=== PATIENT | female | born 1990 | race Caucasian/White ===

== ENCOUNTER 2016-09-29 20:05 | Emergency (ER) | payer OTHER ==
[~2016-09-29] VITALS: Ht 160 cm; Wt 51.0 kg
[2016-09-29 20:29] VITALS: Ht 160 cm; Wt 51.0 kg
[2016-09-29] MEDS ORDERED: SODI126M NASAL (22:10)
[2016-09-29] MEDS ORDERED: ACET500C5 PO (22:10)
--- NOTE | 2016-09-29 22:20 | ERD ---
ER Documentation Chief Complaint Date/Time DATE: 09/29/16 TIME: 22:11 Chief Complaint cough, headache, ear pain (right) 2 days HPI 26-year-old female who is approximately 16 weeks is complaining of cough and runny nose 3 days. Cough is nonproductive. Patient also complaining of headache and bilateral ear pain. Her T-max at home was 37.9C. Denies shortness of breath. Denies chest pain. Denies pelvic pain or vaginal bleeding. ROS All systems reviewed and are negative except as per history of present illness. Medications Home Meds Active Scripts Acetaminophen* (Tylophen*) 500 Mg Capsule, 1 CAP PO Q6H Y for PAIN AND OR ELEVATED TEMP, #20 CAP Prov:PRAFUL RIZVI. 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 PRODUCTION MAINTENANCE MECHANIC 09/29/16 PMhx/Soc Medical and Surgical Hx: pt denies Medical Hx, pt denies Surgical Hx History of Surgery: No Hx Neurological Disorder: No Hx Respiratory Disorders: No Hx Cardiac Disorders: No Hx Psychiatric Problems: No Hx Miscellaneous Medical Probl: No Hx Alcohol Use: No Hx Substance Use: No Hx Tobacco Use: No Smoking Status: Former smoker Physical Exam Vitals Vital Signs Date Time Temp Pulse Resp B/P Pulse Ox O2 Delivery O2 Flow Rate FiO2 09/29/16 20:29 98.5 85 16 109/73 98 Physical Exam General impression: Well-developed, well-nourished. Alert, oriented, in no acute distress Head: Normocephalic, atraumatic. Eyes: PERRL, EOM normal. Conjunctiva not injected. ENT: External canals clear. TM's pearly donald. Nasal mucosa erythematous and swollen. Oral mucosa and oropharynx are normal. Neck: Supple, nontender. No lymphadenopathy. No nuchal rigidity. Respiration: Normal respiratory effort. Lungs clear to auscultate bilaterally. No wheezes, rales or rhonchi. Cardiovascular: Regular rate and rhythm. No murmurs or extra heart sounds. Abdomen: Abdomen normal to inspection. Nontender. No masses or organomegaly. Bowel sounds normal. Back: Normal to inspection. No midline spine tenderness. No CVA tenderness. Extremities: Extremities normal to inspection, nontender. ROM normal. Neuro: Mental status normal, speech normal. PANTRY WORKER grossly intact. Skin: Normal turgor. No rash or lesions. Psych: Normal mood and affect. Procedures/MDM Patient is afebrile, in no respiratory distress. Lungs are clear to auscultate. I doubt that patient has pneumonia or bronchitis. Likely patient's symptoms are result of viral upper respiratory infection. Her ear pain likely secondary from nasal congestion. Patient is , I will not give her any cough medications at this time. She did not have any complaint pelvic pain or vaginal bleeding. Low suspicion for threatened . Patient appears well , stable for discharge and outpatient management. Medical decision making shared with patient and family. Education provided to patient and family. Patient and family expressed understanding of the plan. Medications on discharge: Saline nasal spray, Tylenol. Follow-up: Primary care provider in 2-3 days or return to ED if worse. Departure Diagnosis: Primary Impression: URI (upper respiratory infection) URI type: acute nasopharyngitis (common cold) Qualified Code: J00 - Acute nasopharyngitis Condition: Good Patient Instructions: Adult Self-Care for Colds Referrals: [facility] YOU HAVE RECEIVED A MEDICAL SCREENING EXAM AND THE RESULTS INDICATE THAT YOU DO NOT HAVE A CONDITION THAT REQUIRES URGENT TREATMENT IN THE EMERGENCY DEPARTMENT. FURTHER EVALUATION AND TREATMENT OF YOUR CONDITION CAN WAIT UNTIL YOU ARE SEEN IN YOUR DOCTORS OFFICE WITHIN THE NEXT 1-2 DAYS. IT IS YOUR RESPONSIBILITY TO MAKE AN APPOINTMENT FOR FOLOW-UP CARE. IF YOU HAVE A PRIMARY DOCTOR --you should call your primary doctor and schedule an appointment IF YOU DO NOT HAVE A PRIMARY DOCTOR YOU CAN CALL OUR PHYSICIAN REFERRAL HOTLINE AT IF YOU CAN NOT AFFORD TO SEE A PHYSICIAN YOU CAN CHOSE FROM THE FOLLOWING [facility] [place] [address] [facility] [address] [facility] [facility] [address] [facility] [address] [facility] [address] [facility] [facility]. [address] Additional Instructions: Call your primary care doctor TOMORROW for an appointment during the next 2-3 days.See the doctor sooner or return here if your condition worsens before your appointment time. PRAFUL RIZVI. NAV Sep 29, 2016 22:20
[2016-09-29 22:25] VITALS: BP 102/58; PULSE 69; TEMP 98.2
== END 2016-09-29 22:26 | disposition home or self-care (01) ==
LOC: FTE 20:05
DX: O99.512 Diseases of the respiratory system complicating pregnancy, second trimester (principal); J00 Acute nasopharyngitis [common cold]; Z87.891 Personal history of nicotine dependence; Z3A.16 16 weeks gestation of pregnancy
CPT/HCPCS: 99283